=== PATIENT | male | born 1975 | race Caucasian/White ===

== ENCOUNTER 2017-08-24 08:22 | Emergency (ER) | END 2017-08-24 10:23 | disposition home or self-care (01) ==

== ENCOUNTER 2017-09-17 17:33 | Emergency (ER) | END 2017-09-17 21:21 | disposition home or self-care (01) ==

== ENCOUNTER 2017-11-27 11:10 | Day surgery (SDC) | END 2017-11-27 15:08 | disposition home or self-care (01) ==

== ENCOUNTER 2018-04-03 01:57 | Emergency (ER) | payer MEDICARE, OTHER ==
[~2018-04-03] VITALS: Ht 177.8 cm; Wt 99.8 kg
[~2018-04-03 01:57] MED LIST: AMLODIPINE; OXYCODONE
[2018-04-03 02:00] VITALS: Ht 177.8 cm; Wt 99.8 kg
--- NOTE | 2018-04-03 02:25 | ERD ---
ER Documentation Chief Complaint Chief Complaint headache/eye pain/sore throat/cough/body aches x 1 day, HPI This is a 42-year-old male who presents to the emergency department with compla ints of headache, eye pain, sore throat, generalized body aches for about a day. Patient stated he feels very cold outside. Also complains of nasal congestion. Denies that this is the worst headache of his life, head injury, loss of consciousness, dizziness, neck pain, neck stiffness, throat pain, difficulty swallowing, difficulty breathing lying flat, shoulder pain, chest pain, back pain, abdominal pain, nausea, vomiting, constipation, diarrhea, urinary symptoms, loss of bowel and bladder control, trauma, injury, falls, difficulty walking due to pain, numbness or tingling sensation, calf pain, recent travel, recent major surgery in the last 3 weeks, calf pain, recent long travel, recent exposure to any illness, recent antibiotic use in the last 3 months, fever, chills, seizures. Past medical history: Surgical history: Social: Denies smoking, use of alcoholic beverages, use of illegal drugs. ROS All systems reviewed and are negative except as per history of present illness. Medications Home Meds Active Scripts Benzonatate* (Tessalon Perle*) 100 Mg Capsule, 100 MG PO Q8H PRN for COUGH, #15 CAP Prov:ANNE MARIE GALINDO 04/03/18 Ibuprofen* (Motrin*) 800 Mg Tab, 800 MG PO Q6H PRN for PAIN AND OR ELEVATED TEMP, #30 TAB Prov:ANNE MARIE GALINDO 04/03/18 Amoxicillin/Potassium Clav (Amox-Clav 875-125 mg Tablet) 875-125 mg Tab, 1 TAB PO BID for 10 Days, #20 TAB Prov:ANNE MARIE GALINDO 04/03/18 Reported Medications [Amlodipine] No Conflict Check 11/27/17 [Oxycodone] No Conflict Check 11/27/17 Allergies Allergies: Coded Allergies: No Known Allergy (Unverified , 04/03/18) PMhx/Soc History of Surgery: Yes (BACK SX X4, PUD SX, X2) Anesthesia Reaction: No Hx Neurological Disorder: No Hx Respiratory Disorders: No Hx Cardiac Disorders: Yes (HTN) Hx Psychiatric Problems: No Hx Miscellaneous Medical Probl: No Hx Alcohol Use: No Hx Substance Use: No Hx Tobacco Use: No Smoking Status: Former smoker Physical Exam Vitals Physical Exam Const: No acute distress Head: Atraumatic Eyes: Normal Conjunctiva ENT: Normal External Ears, Nose and Mouth. Bilateral ears: TMs are not erythematous. No bleeding. No discharge. No hearing loss. Nose: Midline without deviation. There is frontal and maxillary sinus tenderness to palpation. Throat: Uvula is in midline and nondisplaced. Tonsils are +2 with redness and has exudates. Tolerating secretions. Patent airway. Speaks full and clear sentences. No tripoding. Neck: Full range of motion. No meningismus. No neck stiffness. No signs of meningeal irritation. Resp: Clear to auscultation bilaterally Cardio: Regular rate and rhythm, no murmurs Abd: Soft, non tender, non distended. Normal bowel sounds Skin: No petechiae or rashes Back: No midline or flank tenderness Ext: No cyanosis, or edema Neur: Awake and alert. No facial droop. Equal chassis mechanic. Equal strength in bilateral upper and lower extremities. Romberg test negative. No neurological deficits. Psych: Normal Mood and Affect Results 24 hrs Current Medications Medications Dose Sig/Andreina Start Time Status Last (Trade) Ordered Route PRN Stop Time Admin Dose Reason Admin Ceftriaxone 1 gm ONCE ONCE 04/03/18 DC 04/03/18 Sodium IM 03:00 02:42 (Rocephin) 04/03/18 03:01 Ketorolac 30 mg ONCE STAT 04/03/18 DC 04/03/18 Tromethamine IM 02:31 02:41 (Toradol) 04/03/18 02:32 1 tab ONCE ONCE 04/03/18 DC 04/03/18 Acetaminophen PO 03:00 02:41 / 04/03/18 03:01 Hydrocodone Bitart ([place] ([id number])) Procedures/MDM Diagnostic tests: Clinical exam. Treatment: Ceftriaxone IM. Toradol IM. [place] p.o. Re-evaluation: Denies pain. Temperature responded to antipyretic medication. N o nuchal rigidity. No signs of meningeal irritation. No neurological deficits. Stated that he feels much better at this time. Differential diagnosis I have low suspicion for sepsis, severe serious bacterial infection, meningitis, mastoiditis, peritonsillar abscess, severe dehydration. Final diagnosis: Sinusitis. Exudative tonsillitis. Prescription: Augmentin. Motrin. Tylenol. Follow-up with PCP in the next 24-48 hours. Come back here in the emergency department for any new symptoms or any worsening symptoms. All questions and concerns were answered. Patient and family members verbalized understanding and agreed with plan of care. Hemodynamically stable on discharge. Departure Diagnosis: Primary Impression: Sinusitis Additional Impression: Exudative tonsillitis Condition: Stable Additional Instructions: Follow-up with PCP in the next 24-48 hours. Come back here in the emergency department for any new symptoms or any worsening symptoms. ANNE MARIE GALINDO Apr 03, 2018 02:25
[2018-04-03] MEDS ORDERED: KETOROLAC 30 MG INJ IM STA (02:31)
[2018-04-03] MEDS ORDERED: AMOX1TAB10 PO (02:51)
[2018-04-03] MEDS ORDERED: BENZ-6 PO (02:52)
[2018-04-03] MEDS ORDERED: IBUP800T48 PO (02:52)
[2018-04-03] MEDS ORDERED: CEFTRIAXONE 1 GM INJ IM ONE (03:00)
[2018-04-03] MEDS ORDERED: HYDROCODONE/APAP (10/325) TAB PO ONE (03:00)
[2018-04-03 03:38] VITALS: BP 160/102; PULSE 103; RESP 19
== END 2018-04-03 03:41 | disposition home or self-care (01) ==
LOC: FTE 01:57
DX: J32.9 Chronic sinusitis, unspecified (principal); J03.90 Acute tonsillitis, unspecified; I10 Essential (primary) hypertension; Z87.891 Personal history of nicotine dependence
CPT/HCPCS: 96372; 99284; J0696; J1885

== ENCOUNTER 2018-12-18 16:25 | Emergency (ER) | payer MEDICARE, OTHER ==
[~2018-12-18] VITALS: Ht 177.8 cm; Wt 99.2 kg
[~2018-12-18 16:25] MED LIST changes: +AMOX1TAB10 PO; +BENZ-6 PO; +IBUP800T48 PO
[2018-12-18 16:29] VITALS: Ht 177.8 cm; Wt 99.2 kg
[2018-12-18 19:35] VITALS: BP 134/78; PULSE 88; RESP 18
== END 2018-12-18 19:37 | disposition home or self-care (01) ==
LOC: FTE 16:25
DX: R35.0 Frequency of micturition (principal); E11.9 Type 2 diabetes mellitus without complications; I10 Essential (primary) hypertension; Z79.84 Long term (current) use of oral hypoglycemic drugs
CPT/HCPCS: 81001; 82962; 99283